=== PATIENT | female | born 2000 | race Caucasian/White ===

== ENCOUNTER 2024-08-05 17:48 | Emergency (ER) | payer BC ==
[~2024-08-05] VITALS: Ht 160 cm; Wt 68.3 kg
[2024-08-05 18:05] VITALS: TEMP 99
[2024-08-05 21:40] VITALS: BP 110/64; PULSE 82; RESP 16; O2SAT 99
== END 2024-08-05 21:42 | disposition home or self-care (01) ==
LOC: ER 17:50
DX: R07.9 Chest pain, unspecified (principal)
CPT/HCPCS: 93005; 99283